=== PATIENT | female | born 1965 | race African-American/Black ===

== ENCOUNTER 2017-05-01 23:53 | Emergency (ER) | payer OTHER ==
[2017-05-02] MEDS: guaiFENesin ER 600 MG TAB PO (00:56)
[2017-05-02] MEDS: IBUPROFEN 800 MG TAB PO (00:56)
[2017-05-02] MEDS: LORATADINE 10 MG TAB PO (00:56)
== END 2017-05-02 01:04 | disposition home or self-care (01) ==
LOC: M ED 23:53
DX: J06.9 Acute upper respiratory infection, unspecified (principal); B34.9 Viral infection, unspecified
CPT/HCPCS: 99283

== ENCOUNTER → 2017-09-15 | Outpatient (CLI) | payer OTHER ==
[~2017-09-15] MED LIST: LIDOCAINE 1% MDV 20ML VIAL As Ordered
== END ==
LOC: M RADPRO 11:11
DX: E04.2 Nontoxic multinodular goiter (principal); Z79.899 Other long term (current) drug therapy; Z88.5 Allergy status to narcotic agent
CPT/HCPCS: 10022

== ENCOUNTER → 2017-10-26 | Outpatient (CLI) | payer OTHER | LOC: M RAD 10:32 | DX: Z12.31 Encounter for screening mammogram for malignant neoplasm of breast (principal); Z78.0 Asymptomatic menopausal state; N64.59 Other signs and symptoms in breast; Z79.890 Hormone replacement therapy; Z80.3 Family history of malignant neoplasm of breast | CPT/HCPCS: 77067 ==